=== PATIENT | female | born 1960 | race Caucasian/White ===

== ENCOUNTER 2018-02-20 17:38 | Emergency (ER) | payer BC ==
[~2018-02-20] VITALS: Ht 157.5 cm; Wt 59.3 kg
[2018-02-20] MEDS ORDERED: AMOX-580 PO (18:25)
[2018-02-20] MEDS ORDERED: HYDR-3965 PO (18:25)
[2018-02-20 18:42] VITALS: BP 126/94
== END 2018-02-20 18:45 | disposition home or self-care (01) ==
LOC: ER 17:38
DX: K08.89 Other specified disorders of teeth and supporting structures (principal); E78.00 Pure hypercholesterolemia, unspecified; E03.9 Hypothyroidism, unspecified; Z79.899 Other long term (current) drug therapy
CPT/HCPCS: 99283

== ENCOUNTER 2018-05-15 17:56 | Emergency (ER) | payer BC ==
[~2018-05-15] VITALS: Ht 154.9 cm; Wt 54.0 kg
[2018-05-15] MEDS ORDERED: ketorolac trometh. 30mg/ml inj. IM ONE (20:10)
[2018-05-15] MEDS ORDERED: IBUP-1985 PO (20:11)
[2018-05-15 20:30] VITALS: BP 115/74
== END 2018-05-15 20:32 | disposition home or self-care (01) ==
LOC: ER 17:57
DX: S50.01XA Contusion of right elbow, initial encounter (principal); S20.211A Contusion of right front wall of thorax, initial encounter; S50.11XA Contusion of right forearm, initial encounter; E78.00 Pure hypercholesterolemia, unspecified; E03.9 Hypothyroidism, unspecified; W19.XXXA Unspecified fall, initial encounter; Y93.E1 Activity, personal bathing and showering; Y92.89 Other specified places as the place of occurrence of the external cause; Y99.9 Unspecified external cause status
CPT/HCPCS: 71101; 73080; 96372; 99284; J1885

== ENCOUNTER 2019-12-23 09:23 | Emergency (ER) | payer BC ==
[~2019-12-23] VITALS: Ht 152.4 cm; Wt 58.6 kg
[~2019-12-23 09:23] MED LIST: IBUP-1985 PO
[2019-12-23 09:27] VITALS: BP 131/84
[2019-12-23] MEDS ORDERED: HYDROcodone/acetaminophen 5mg/325mg tablet PO ONE (10:10)
[2019-12-23] MEDS ORDERED: HYDR-3965 PO (10:45)
== END 2019-12-23 10:52 | disposition home or self-care (01) ==
LOC: ER 09:23
DX: S62.317A Displaced fracture of base of fifth metacarpal bone, left hand, initial encounter for closed fracture (principal); E78.00 Pure hypercholesterolemia, unspecified; E03.9 Hypothyroidism, unspecified; Z72.89 Other problems related to lifestyle; Z79.899 Other long term (current) drug therapy; W01.0XXA Fall on same level from slipping, tripping and stumbling without subsequent striking against object, initial encounter; Y93.89 Activity, other specified; Y92.89 Other specified places as the place of occurrence of the external cause; Y99.8 Other external cause status
CPT/HCPCS: 29125; 73110; 73130; 99284

== ENCOUNTER 2020-07-26 13:34 | Emergency (ER) | payer BC, MEDICAID ==
[~2020-07-26] VITALS: Ht 162.6 cm; Wt 55.0 kg
[2020-07-26 14:03] VITALS: BP 152/117
== END 2020-07-26 15:18 | disposition home or self-care (01) ==
LOC: ER 13:34
DX: J06.9 Acute upper respiratory infection, unspecified (principal); E78.00 Pure hypercholesterolemia, unspecified; E07.9 Disorder of thyroid, unspecified; Z87.81 Personal history of (healed) traumatic fracture; Z20.828 Contact with and (suspected) exposure to other viral communicable diseases
CPT/HCPCS: 87635; 99283

== ENCOUNTER → 2021-04-05 | Emergency (ER) | payer BC, MEDICAID ==
[~2021-04-05] VITALS: Ht 152.4 cm; Wt 55.0 kg
[~2021-04-05] MED LIST changes: +ONDA4TAB6 PO; +ondansetron 4mg rapidly disintigrating tab PO ONE; +ondansetron 4mg/5ml UD cup PO ONE
[2021-04-05 11:37] VITALS: BP 139/71
--- NOTE | 2021-04-05 12:22 | NUR ---
PT. STATED SHE WAS NOT NAUSES SHE ONLY HAS A HEADACH AND REFUSED THE [facility] AT THIS TIME. [facility]
[2021-04-05 14:25] LABS: ALANINE AMINOTRANSFERASE 27 U/L (12-78); ALBUMIN/GLOBULIN RATIO 0.8 (1.1-1.5); ALKALINE PHOSPHATASE 113 IU/L (46-116); ANION GAP 8 (8-16); ASPARTATE AMINO TRANSFERASE 27 U/L (10-37); BILIRUBIN,TOTAL 0.3 MG/DL (0.1-1.0); BLOOD UREA NITROGEN 12 MG/DL (7-18); BUN/CREATININE RATIO 15.6 (6.6-38.0); CALCIUM 8.6 MG/DL (8.5-10.1); CHLORIDE 102 MMOL/L (99-107); CREATININE 0.77 MG/DL (0.40-0.90); GLUCOSE 103 MG/DL (70-104); LIPASE 174 U/L (73-393); SODIUM 139 MMOL/L (135-145); TOTAL CARBON DIOXIDE 29.4 MMOL/L (24-32); TOTAL PROTEIN 6.8 G/DL (6.4-8.2); eGFR 76 ML/MIN
[2021-04-05 14:30] LABS: BASOPHILS % (AUTO) 0.4 % (0-1); EOSINOPHILS % (AUTO) 0.5 % (0-6); HEMATOCRIT 39.5 % (35.0-45.0); HEMOGLOBIN 13.3 g/dl (12.0-16.0); LYMPHOCYTES # (AUTO) 1.2 X10'3 (1.1-4.8); LYMPHOCYTES % (AUTO) 16.5 % (21-51); MEAN CORPUSCULAR HEMOGLOBIN 28.6 PG (27.0-31.0); MEAN CORPUSCULAR HGB CONC 33.6 g/dL (33.0-36.5); MEAN CORPUSCULAR VOLUME 85.2 FL (78-98); MONOCYTES % (AUTO) 14.1 % (2-12); NEUTROPHILS # (AUTO) 5.1 X10'3 (1.8-7.7); NEUTROPHILS % (AUTO) 68.5 % (42-75); PLATELET COUNT 237 X10'3 (140-440); RED BLOOD COUNT 4.63 X10'6 (4.20-5.60); RED CELL DISTRIBUTION WIDTH 13.3 % (11.5-14.5); WHITE BLOOD COUNT 7.4 X10'3 (4.5-11.0)
== END | disposition home or self-care (01) ==
LOC: ER 11:01
DX: K52.9 Noninfective gastroenteritis and colitis, unspecified (principal); Z20.822 Contact with and (suspected) exposure to COVID-19; R11.0 Nausea; R06.02 Shortness of breath; R05 Cough; R51.9 Headache, unspecified; E78.00 Pure hypercholesterolemia, unspecified; E03.9 Hypothyroidism, unspecified; Z72.89 Other problems related to lifestyle; Z79.899 Other long term (current) drug therapy
CPT/HCPCS: 36415; 71045; 80053; 83690; 85025; 87635; 99284; C9803

== ENCOUNTER 2021-04-25 10:47 | Emergency (ER) | payer BC, MEDICAID ==
[~2021-04-25] VITALS: Ht 152.4 cm; Wt 54.0 kg
[~2021-04-25 10:47] MED LIST changes: -ondansetron 4mg rapidly disintigrating tab PO ONE; -ondansetron 4mg/5ml UD cup PO ONE
[2021-04-25 11:36] VITALS: BP 124/62
== END 2021-04-25 12:21 | disposition home or self-care (01) ==
LOC: ER 10:48
DX: B34.9 Viral infection, unspecified (principal); Z20.822 Contact with and (suspected) exposure to COVID-19; E78.00 Pure hypercholesterolemia, unspecified; E06.9 Thyroiditis, unspecified
CPT/HCPCS: 87635; 99283; C9803

== ENCOUNTER 2024-09-01 08:48 | Emergency (ER) | payer BC, MEDICAID ==
[~2024-09-01] VITALS: Ht 152.4 cm; Wt 54.0 kg
[2024-09-01 08:53] VITALS: BP 141/76; PULSE 73; RESP 16; TEMP 97.8; O2SAT 98
== END 2024-09-01 10:53 | disposition home or self-care (01) ==
LOC: ER 08:49
DX: S90.31XA Contusion of right foot, initial encounter (principal); E78.00 Pure hypercholesterolemia, unspecified; E03.9 Hypothyroidism, unspecified; Z88.2 Allergy status to sulfonamides; Z79.1 Long term (current) use of non-steroidal anti-inflammatories (NSAID); Z79.899 Other long term (current) drug therapy; Z72.89 Other problems related to lifestyle; W20.8XXA Other cause of strike by thrown, projected or falling object, initial encounter; Y93.89 Activity, other specified; Y92.89 Other specified places as the place of occurrence of the external cause; Y99.8 Other external cause status
CPT/HCPCS: 73630; 99283